=== PATIENT | male | born 1995 | race Two or more races ===

== ENCOUNTER 2020-08-04 07:02 | Emergency (ER) | payer OTHER ==
[~2020-08-04] VITALS: Ht 172.7 cm; Wt 77.0 kg
[2020-08-04 07:13] VITALS: BP 145/71
--- NOTE | 2020-08-04 07:37 | PHYS DOC ---
Past History Past Medical History: No Pertinent History Alcohol Use: Occasionally General Adult EDM: Chief Complaint: FOOT INJURY PAIN HPI: HPI: Patient is a 24-year-old male coming in for decreased sensation to his right lateral foot. Patient states that he first noticed the symptoms yesterday when he had gotten off work. Was concerned whether or still there in the morning. Denies any trauma to the foot. Denies any paresthesias or weakness. 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 No new medications. Patient states he wears boots while he is working. Review of Systems: Review of Systems: All other systems within normal limits except for as noted in the HPI Allergies: Allergies: Allergies Coded Allergies Type Severity Reaction Last Updated Verified No Known Drug Allergies 08/04/20 No Physical Exam: PE: Constitutional: Well developed, well nourished, no acute distress, non-toxic appearance. [] HENT: Normocephalic, atraumatic, bilateral external ears normal, nose normal. [] Eyes: PERRLA, conjunctiva normal, no discharge. [] Neck: No rigidity, supple, no stridor. [] Cardiovascular: Regular rate and rhythm, brisk cap refill [] Lungs & Thorax: Non labored symmetric respirations, no tachypnea or respiratory distress [] Abdomen: Soft, nondistended. Skin: Warm, dry, no erythema, no rash. [] Back: Unremarkable, no step-offs deformities, mild right-sided tenderness. No point spinal tenderness. Extremities: No deformities, range of motion grossly intact, no lower extremity edema [] Neurologic: Alert and oriented X 3, no focal deficits noted. Subjective decreased sensation on right lateral foot up to one third of bilateral right lower leg. No decreased sensation on plantar aspect, medial, or dorsum of the foot. [] Psychologic: Affect normal, judgement normal, mood normal. [] Current Patient Data: Vital Signs: Vital Signs Date Time Temp Pulse Resp B/P (MAP) Pulse Ox O2 Delivery O2 Flow Rate FiO2 08/04/20 07:13 98.3 118 18 145/71 (95) 99 Room Air EKG: EKG: [] Radiology/Procedures: Radiology/Procedures: [address] [address] IMAGING REPORT Signed PATIENT: EDINSON VANCE ACCOUNT: [id number] : 1995 LOCATION: ER AGE: 24 SEX: M EXAM STATUS: REG ER ORD. PHYSICIAN: MIYA REAVES MD REASON: numbness down right leg. no injury PROCEDURE: LUMBAR SPINE 2-3V EXAMINATION: Lumbar spine radiograph. VIEWS: 3 views COMPARISON: None INDICATION:24 years, Male, numbness down to the right leg, no history of trauma. FINDINGS: The vertebral bodies are normal in height and alignment. No acute fracture or subluxation. Intervertebral disc spaces are preserved. Small lucent lesion at L4 vertebral body, favors benign etiology such as intraosseous hemangioma. Incomplete fusion of the posterior element of S1. Paravertebral soft tissue is unremarkable. IMPRESSION: No acute osseous process. Electronically signed by: Courtney De La Cruz MD (08/04/2020 7:50 AM) [facility] DICTATED AND SIGNED BY: COURTNEY DE LA CRUZ MD DATE: 08/04/20746 CC: MIYA REAVES MD; CHRISTIANO POMPA DO ~MTH0 0 [] Heart Score: C/O Chest Pain: No Risk Factors: Risk Factors: DM, Current or recent (<one month) smoker, HTN, HLP, family history of CAD, obesity. Risk Scores: Score 0 - 3: 2.5% MACE over next 6 weeks - Discharge Home Score 4 - 6: 20.3% MACE over next 6 weeks - Admit for Clinical Observation Score 7 - 10: 72.7% MACE over next 6 weeks - Early Invasive Strategies Course & Med Decision Making: Course & Med Decision Making Numbness appears to follow the territory of the sural nerve. No signs suggestive of S1 compression. Patient wears boots at work and the numbness goes up to about that area. Discussed loosening up his boots. And then following up with Ortho if symptoms do not improve for MRI to rule out soft tissue cyst or ganglion cyst causing nerve compression. Dragon Disclaimer: Dragon Disclaimer: This electronic medical record was generated, in whole or in part, using a voice recognition dictation system. Departure Departure: Impression: Primary Impression: Numbness of right foot Disposition: HOME / SELF CARE / HOMELESS Condition: STABLE Referrals: CHRISTIANO POMPA DO (PCP) Additional Instructions: Keep boots looser or padding over your right leg. Follow-up with your primary care provider if symptoms not resolved for MRI to evaluate for soft tissue cyst causing nerve compression. MIYA REAVES MD Aug 04, 2020 07:37
--- NOTE | 2020-08-04 07:52 | RAD ---
EXAMINATION: Lumbar spine radiograph. VIEWS: 3 views COMPARISON: None INDICATION:24 years, Male, numbness down to the right leg, no history of trauma. FINDINGS: The vertebral bodies are normal in height and alignment. No acute fracture or subluxation. Interverte bral disc spaces are preserved. Small lucent lesion at L4 vertebral body, favors benign etiology such as intraosseous hemangioma. Incomplete fusion of the posterior element of S1. Paravertebral soft tis zully is unremarkable. IMPRESSION: No acute osseous process. Electronically signed by: Maite De La Cruz MD (08/04/2020 7:50 AM) [facility]
--- NOTE | 2020-08-04 07:53 | RAD ---
EXAMINATION: Right tibia/fibula radiograph. VIEWS: 2 views COMPARISON: None INDICATION:24 years, Male, numbness in the right leg and foot. FINDINGS: No acute fracture, dislocation or subluxation. Ankle mortise and talar dome are intact. No bone erosi on or periosteal reaction. No soft tissue swelling. IMPRESSION: No acute osseous process. Electronically signed by: Maite De La Cruz MD (08/04/2020 7:51 AM) [facility]
== END 2020-08-04 08:08 | disposition home or self-care (01) ==
LOC: ER 07:02
DX: R20.0 Anesthesia of skin (principal)
CPT/HCPCS: 72100; 73590; 99284

== ENCOUNTER 2020-09-18 16:04 | Emergency (ER) | payer OTHER ==
[~2020-09-18] VITALS: Ht 172.7 cm; Wt 77.3 kg
--- NOTE | 2020-09-18 16:25 | PHYS DOC ---
Past History Past Medical History: No Pertinent History Alcohol Use: Occasionally General Adult EDM: Chief Complaint: MULTIPLE COMPLAINTS HPI: HPI: Patient is a 25-year-old male who presents with cough, shortness of breath, chest tightness. Patient states "I think it had chest tightness since I got my Moderna vaccine". Patient's last vaccine was in May. Patient denies fever. States "I woke up at 3 AM with a cough, shortness of breath and dizziness". Denies medical history. Review of Systems: Review of Systems: Constitutional: Denies fever or chills Eyes: Denies change in visual acuity HENT: Denies nasal congestion or sore throat Respiratory: Reports cough or shortness of breath Cardiovascular: Reports chest pressure GI: Denies abdominal pain, nausea, vomiting, bloody stools or diarrhea : Denies dysuria Musculoskeletal: Denies back pain or joint pain Integument: Denies rash Neurologic: Denies headache, focal weakness or sensory changes Endocrine: Denies polyuria or polydipsia Lymphatic: Denies swollen glands Psychiatric: Denies depression or anxiety Allergies: Allergies: Allergies Coded Allergies Type Severity Reaction Last Updated Verified No Known Drug Allergies 08/04/20 No Physical Exam: PE: Constitutional: Well developed, well nourished, no acute distress, non-toxic appearance. [] HENT: Normocephalic, atraumatic, bilateral external ears normal, oropharynx moist, no oral exudates, nose normal. [] Eyes: PERRLA, EOMI, conjunctiva normal, no discharge. [] Neck: Normal range of motion, no tenderness, supple, no stridor. [] Cardiovascular:Heart rate regular rhythm, no murmur [] Lungs & Thorax: Bilateral breath sounds clear to auscultation [] Abdomen: Bowel sounds normal, soft, no tenderness, no masses, no pulsatile masses. [] Skin: Warm, dry, no erythema, no rash. [] Back: No tenderness, no CVA tenderness. [] Extremities: No tenderness, no cyanosis, no clubbing, ROM intact, no edema. [] Neurologic: Alert and oriented X 3, normal motor function, normal sensory function, no focal deficits noted. [] Psychologic: Anxious mood EKG: EKG: Sinus rhythm. Heart rate [address] elevation or depression. [] Radiology/Procedures: Radiology/Procedures: []EXAM: XR CHEST 1V 09/18/2020 4:37 PM CLINICAL INDICATION: Shortness of breath COMPARISON: None TECHNIQUE: AP upright view of the chest FINDINGS: The heart and mediastinum are normal. Lungs are well-expanded and clear. No consolidation, pleural effusion, or pneumothorax. Pulmonary vascularity is normal. The thoracic skeleton is intact. IMPRESSION: Normal chest radiograph. Electronically signed by: Rabia Cali MD (09/18/2020 6:17 PM) [id number] Heart Score: C/O Chest Pain: No Risk Factors: Risk Factors: DM, Current or recent (<one month) smoker, HTN, HLP, family history of CAD, obesity. Risk Scores: Score 0 - 3: 2.5% MACE over next 6 weeks - Discharge Home Score 4 - 6: 20.3% MACE over next 6 weeks - Admit for Clinical Observation Score 7 - 10: 72.7% MACE over next 6 weeks - Early Invasive Strategies Course & Med Decision Making: Course & Med Decision Making Pertinent Labs and Imaging studies reviewed. (See chart for details) [] 25-year-old male presents with cough, shortness of breath, chest tightness. Afebrile. Hemodynamically stable. Troponin is negative. EKG shows sinus rhythm. Heart rate 97 bpm. Chest x-ray is unremarkable. Advised patient to self quarantine until results are given back on Covid test. Patient can take Motrin and Tylenol at home for fever or discomfort. Patient is hemodynamically stable upon discharge Dragon Disclaimer: Dragon Disclaimer: This electronic medical record was generated, in whole or in part, using a voice recognition dictation system. Departure Departure: Impression: Primary Impression: Cough Disposition: 01 HOME / SELF CARE / HOMELESS Condition: STABLE Referrals: CHRISTIANO POMPA DO (PCP) Patient Instructions: Cough, Adult, [id number] Additional Instructions: You were seen in the emergency room for cough and chest tightness. Your labs were unremarkable. Your chest x-ray was unremarkable. You can take ibuprofen and Tylenol if you have fever or chills. Call your PCP on Sunday to make a follow-up appointment. Return emergency room if you have worsening symptoms or concerns. EMERGENCY DEPARTMENT GENERAL DISCHARGE INSTRUCTIONS Thank you for coming to [facility] (ED) today and trusting us with you care. We trust that you had a positivie experience in our Emergency Department. If you wish to speak to the department management, you may call the director at [phone]. YOUR FOLLOW UP INSTRUCTIONS ARE FOLLOWS: 1. Do you have a private Doctor? If you do not have a private doctor, please ask for a resource list of physicians or clinics that may be able to assist you with follow up care. 2. The Emergency Physician has interpreted your x-rays. The X-Ray specialist will also review them. If there is a change in the findings, you will be notified in 48 hours when at all possible. 3. A lab test or culture has been done, your results will be reviewed and you will be notified if you need a change in treatment. ADDITIONAL INSTRUCTIONS AND INFORMATION: 1. Your care today has been supervised by a physician who is specially trained in emergency care. Many problems require more than one evaluation for a complete diagnosis and treatment. We recommend that you schedule your follow up appointment as recommended to ensure complete treatment of you illness or injury. If you are unable to obtain follow up care and continue to have a problem, or if your condition worsens, we recommend that you return to the ED. 2. We are not able to safely determine your condition over the phone nor are we able to give sound medical advice over the phone. For these safety reasons, if you call for medical advice we will ask you to come to the ED for further evaluation. 3. If you have any questions regarding these discharge instructions please call the ED at [phone]. SAFETY INFORMATION: In the interest of safety, wellness, and injury prevention; we encourage you to wear your sealbelt, if you smoke; quite smoking, and we encourage family to use a protective helmet for bicycling and other sporting events that present an increased risk for head injury. IF YOUR SYMPTOMS WORSEN OR NEW SYMPTOMS DEVELOP, OR YOU HAVE CONCERNS ABOUT YOUR CONDITION; OR IF YOUR CONDITION WORSENS WHILE YOU ARE WAITING FOR YOUR FOLLOW UP A PPOINTMENT; EITHER CONTACT YOUR PRIMARY CARE DOCTOR, THE PHYSICIAN WHOSE NAME AND NUMBER YOU WERE GIVEN, OR RETURN TO THE ED IMMEDIATELY. ZELDA DONOHUE APRN Sep 18, 2020 16:25
--- NOTE | 2020-09-18 17:45 | EKG ---
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
[2020-09-18 18:17] VITALS: BP 128/78
--- NOTE | 2020-09-18 18:20 | RAD ---
EXAM: XR CHEST 1V 09/18/2020 4:37 PM CLINICAL INDICATION: Shortness of breath COMPARISON: None TECHNIQUE: AP upright view of the chest FINDINGS: The heart and mediastinum are normal. Lungs are well-expanded and clear. No consolidatio n, pleural effusion, or pneumothorax. Pulmonary vascularity is normal. The thoracic skeleton is int act. IMPRESSION: Normal chest radiograph. Electronically signed by: Rabia Cali MD (09/18/2020 6:17 PM) [id number]
== END 2020-09-18 18:46 | disposition home or self-care (01) ==
LOC: ER 16:04
DX: R05 Cough (principal); Z20.822 Contact with and (suspected) exposure to COVID-19
CPT/HCPCS: 36415; 71045; 84484; 93005; 99285; C9803; U0003